=== PATIENT | male | born 1965 | race African-American/Black ===

== ENCOUNTER 2017-03-27 06:04 | Emergency (ER) | payer SELFPAY ==
[~2017-03-27] VITALS: Ht 182.9 cm; Wt 128.0 kg
[2017-03-27 06:46] VITALS: BP 173/132
== END 2017-03-27 07:14 | disposition left against medical advice (07) ==
LOC: ER 06:26
DX: R14.0 Abdominal distension (gaseous) (principal); R60.0 Localized edema; R06.09 Other forms of dyspnea
CPT/HCPCS: 99281; Z7610